=== PATIENT | female | born 1995 | race Caucasian/White ===

== ENCOUNTER → 2025-09-11 13:54 | Outpatient (CLI) | payer OTHER, SELFPAY ==
[2025-09-11 14:34] LABS: Hemoglobin A1C% w Est Avg Glu 5.3 % (4.0-6.0)
[2025-09-11 14:57] LABS: Alanine Aminotransferase 28 IU/L (<35); Albumin 5.0 g/dL (3.5-5.0); Albumin Globulin Ratio 1.4 (1.0-2.8); Alkaline Phosphatase 76 U/L (38-126); Blood Urea Nitrogen 8 mg/dL (7-17); Calcium 9.6 mg/dL (8.4-10.2); Carbon Dioxide 26 mmol/L (22-32); Chloride 100 mmol/L (98-107); Cholesterol 217 mg/dL (140-199); Estimated Glomerular Filt Rate > 60 mL/min (>60); Globulin 3.5 g/dL (1.7-4.1); Glucose 89 mg/dL (70-99); HDL Cholesterol 45 mg/dL (40-60); HEMOLYSIS < 15 (0-50); Potassium 4.2 mmol/L (3.4-5.1); Sodium 138 mmol/L (137-145); Total Protein 8.5 g/dL (6.3-8.2); Triglycerides 244 mg/dL (35-150)
[2025-09-11 15:25] LABS: TSH w/ Reflex to FT4 2.49 uIU/mL (0.47-4.68)
[2025-09-12 07:09] LABS: Insulin Level Total 23.2 uIU/mL (2.6-24.9)
== END ==
PROVIDERS: PCP Family Medicine; Referring Provider Family Medicine; Visit Provider Family Medicine
DX: E28.2 Polycystic ovarian syndrome (principal); R73.03 Prediabetes
CPT/HCPCS: 36415; 80053; 80061; 83036; 83525; 84402; 84403; 84443